=== PATIENT | male | born 1950 | race Caucasian/White ===

== ENCOUNTER 2024-05-08 10:00 | Day surgery (SDC) | payer MEDICARE ==
[2024-05-04 10:13] LABS: BASOPHILS # (AUTO) 0.1 X10'3 (0-0.2); BASOPHILS % (AUTO) 0.9 % (0-1); EOSINOPHILS # (AUTO) 0.2 X10'3 (0-0.9); EOSINOPHILS % (AUTO) 2.1 % (0-6); HEMATOCRIT 38.6 % (42.0-52.0); LYMPHOCYTES # (AUTO) 1.3 X10'3 (1.1-4.8); LYMPHOCYTES % (AUTO) 17.3 % (21-51); MEAN CORPUSCULAR HEMOGLOBIN 30.3 PG (27.0-31.0); MEAN CORPUSCULAR HGB CONC 33.7 g/dL (33.0-36.5); MEAN CORPUSCULAR VOLUME 89.8 FL (78-98); MEAN PLATELET VOLUME 6.3 FL (7.4-10.4); MONOCYTES # (AUTO) 0.6 X10'3 (0-0.9); MONOCYTES % (AUTO) 7.8 % (2-12); NEUTROPHILS # (AUTO) 5.3 X10'3 (1.8-7.7); NEUTROPHILS % (AUTO) 71.9 % (42-75); PLATELET COUNT 316 X10'3 (140-440); RED CELL DISTRIBUTION WIDTH 15.7 % (11.5-14.5); WHITE BLOOD COUNT 7.3 X10'3 (4.5-11.0)
[2024-05-04 10:32] LABS: APTT 31 SECONDS (22-32); PROTHROMBIN TIME 10.9 SECONDS (9.0-12.0)
[2024-05-04 11:08] LABS: ALBUMIN 3.3 G/DL (3.4-5.0); ANION GAP 8 (8-16); BLOOD UREA NITROGEN 24 MG/DL (7-18); BUN/CREATININE RATIO 24.2 (10.0-20.0); CHLORIDE 104 MMOL/L (99-107); CHOL/HDL RATIO 6.7 (0.00-4.99); CHOLESTEROL 269 MG/DL (0-200); CREATININE 0.99 MG/DL (0.60-1.10); GLUCOSE 92 MG/DL (70-104); HDL CHOLESTEROL 40 MG/DL (35-60); LDL CHOLESTEROL 186 MG/DL (50-100); POTASSIUM 4.4 MMOL/L (3.5-5.1); SODIUM 140 MMOL/L (135-145); TRIGLYCERIDES 152 MG/DL (20-135); eGFR 75 ML/MIN
[~2024-05-08] VITALS: Ht 182.9 cm; Wt 74.2 kg
[2024-05-08] VITALS (9 sets, daily range): BP systolic 106–128; BP diastolic 59–72; PULSE 62–117; RESP 12–20; TEMP 97.5; O2SAT 95–99
[2024-05-08] MEDS ORDERED: SACU1TAB (11:06)
[2024-05-08] MEDS ORDERED: SPIR25TA5 (11:06)
[2024-05-08] MEDS ORDERED: BICA50TA7 (11:06)
[2024-05-08] MEDS ORDERED: EMPA10TA (11:06)
[2024-05-08] MEDS ORDERED: METO-384 (11:06)
[2024-05-08] MEDS ORDERED: FLO0.4C (11:06)
[2024-05-08] MEDS ORDERED: APIX5TAB3 (11:06)
[2024-05-08] MEDS: normal saline 1,000 ML IV SCH (11:13)
[2024-05-08] MEDS: diphenhydrAMINE 25mg capsule PO PRN (11:13)
[2024-05-08] MEDS: LORazepam 0.5 MG tablet PO PRN (11:13)
[2024-05-08] MEDS ORDERED: iohexol 350MG/ML 100ml bottle IV ONE (12:02)
[2024-05-08] MEDS ORDERED: verapamil 2.5 mg/ml inj IV ONE (12:02)
[2024-05-08] MEDS ORDERED: LIDOcaine 1% (10mg/ml) 2ml vial ONE (12:02)
[2024-05-08] MEDS ORDERED: fentaNYL/PF 50MCG/1 ML 2ML syringe ONE (12:02)
[2024-05-08] MEDS ORDERED: midazolam 1 mg/ML 2ml injection ONE ×3 (12:02→12:52)
[2024-05-08] MEDS ORDERED: heparin 1,000unit/ml 10ml vial 10 ML ONE (12:02)
[2024-05-08] MEDS ORDERED: nitroGLYCERIN 500mcg/5mL D5W 5 ML IV ONE (12:03)
[2024-05-08] MEDS ORDERED: HYDROcodone/acetaminophen 10/325mg tab PO PRN (13:30)
[2024-05-08] MEDS ORDERED: HYDROcodone/acetaminophen 5mg/325mg tablet PO PRN (13:30)
== END 2024-05-08 16:00 | disposition home or self-care (01) ==
LOC: SSTAY O 10:00
PROVIDERS: ATTEND Student in an Organized Health Care Education/Training Program
DX: R94.39 Abnormal result of other cardiovascular function study (principal); I25.10 Atherosclerotic heart disease of native coronary artery without angina pectoris; E78.5 Hyperlipidemia, unspecified; I44.7 Left bundle-branch block, unspecified; C80.1 Malignant (primary) neoplasm, unspecified; I50.9 Heart failure, unspecified; Z86.711 Personal history of pulmonary embolism; Z86.718 Personal history of other venous thrombosis and embolism; I11.0 Hypertensive heart disease with heart failure; Z79.899 Other long term (current) drug therapy
CPT/HCPCS: 36415; 80048; 80061; 82948; 85025; 85610; 85730; 93005; 93458; A6258; C1894; J1644; J2003; J2250; J3010; J3490; J7030; Q0163; Q9967; Z7610; 99152